=== PATIENT | female | born 1945 | race American Indian/Alaskan Native ===

== ENCOUNTER 2016-09-27 14:47 | Emergency (ER) | payer MEDICARE ==
[2016-09-27 16:06] LABS: Basophils % (Auto) 0.1 % (0.0-1.8); Hematocrit 32.6 % (30.3-42.9); Hemoglobin 10.8 gm/dl (10.1-14.3); Mean Corpuscular HGB Conc 33 % (30-34); Mean Corpuscular Hemoglobin 30 pg (28-32); Mean Corpuscular Volume 89 fl (79-97); Platelet Count 278 K/mm3 (140-440); Red Blood Count 3.67 M/mm3 (3.65-5.03); Red Cell Distribution Width 15.6 % (13.2-15.2); White Blood Count 14.7 K/mm3 (4.5-11.0)
[2016-09-27 16:12] LABS: Anion Gap 23 mmol/L; BUN/Creatinine Ratio 33.33; Blood Urea Nitrogen 30 mg/dL (7-17); Calcium 8.8 mg/dL (8.4-10.2); Carbon Dioxide 24 mmol/L (22-30); Chloride 100.3 mmol/L (98-107); Glucose 104 mg/dL (65-100); Potassium 3.8 mmol/L (3.6-5.0); Sodium 143 mmol/L (137-145)
--- NOTE | 2016-09-27 18:20 | Emergency Department Report ---
ED Abdominal Pain HPI - General Chief Complaint: Abdominal Pain Stated Complaint: GENERAL WEAKNESS Time Seen by Provider: 09/27/16 17:35 Source: EMS Mode of arrival: Stretcher Limitations: No Limitations, Physical Limitation - History of Present Illness MD Complaint: abdominal pain -: Gradual Location: diffuse Radiation: none Severity: moderate Severity scale (0 -10): 7 Quality: cramping, aching Consistency: intermittent Improves With: nothing Worsens With: nothing Associated Symptoms: nausea, vomiting. denies: diarrhea, fever, chills, constipation, dysuria, hematemesis, hematochezia, melena, hematuria, anorexia, syncope - Related Data Allergies Allergy/AdvReac Type Severity Reaction Status Date / Time Penicillins Allergy Unknown Verified 09/27/16 15:29 ED Review of Systems ROS: Stated complaint: GENERAL WEAKNESS Other details as noted in HPI Comment: All other systems reviewed and negative ED Past Medical Hx - Past Medical History Previous Medical History?: Yes Hx Heart Attack/AMI: Yes Hx Diabetes: Yes Hx of Cancer: Yes (HX of pancreatic cancer. No active tx.) - Surgical History Past Surgical History?: Yes Hx Appendectomy: Yes Additional Surgical History: Hx of hysterectomy. - Social History Smoking Status: Never Smoker Substance Use Type: None ED Physical Exam - General Limitations: No Limitations, Physical Limitation General appearance: alert, in no apparent distress - Head Head exam: Present: atraumatic, normocephalic - Eye Eye exam: Present: normal appearance - ENT ENT exam: Present: normal exam, normal orophraynx, mucous membranes moist - Neck Neck exam: Present: normal inspection - Respiratory Respiratory exam: Present: normal lung sounds bilaterally. Absent: respiratory distress, wheezes, rales - Cardiovascular Cardiovascular Exam: Present: regular rate, normal rhythm. Absent: systolic murmur, diastolic murmur, rubs, gallop - GI/Abdominal GI/Abdominal exam: Present: soft, tenderness, normal bowel sounds. Absent: distended, guarding, rebound, rigid, hyperactive bowel sounds, hypoactive bowel sounds - Extremities Exam Extremities exam: Present: normal inspection - Back Exam Back exam: Present: normal inspection - Neurological Exam Neurological exam: Present: alert, oriented X3 - Psychiatric Psychiatric exam: Present: normal affect, normal mood - Skin Skin exam: Present: warm, dry, intact, normal color. Absent: rash ED Course Vital Signs 0809/27/16 09/27/16 15:12 15:15 15:16 Temperature 98.1 F Pulse Rate 91 H Respiratory 16 Rate Blood Pressure 140/71 140/71 Blood Pressure 140/71 [Left] O2 Sat by Pulse 97 96 100 Oximetry 09/27/16 09/27/16 09/27/16 15:30 16:01 16:19 Temperature Pulse Rate Respiratory 18 Rate Blood Pressure 129/57 139/61 Blood Pressure [Left] O2 Sat by Pulse 96 96 Oximetry 09/27/16 09/27/16 09/27/16 16:32 17:00 18:00 Temperature 98.2 F 98.2 F Pulse Rate 81 92 H Respiratory 18 24 Rate Blood Pressure 131/63 Blood Pressure 135/67 140/68 [Left] O2 Sat by Pulse 96 98 92 Oximetry 09/27/16 18:11 Temperature Pulse Rate Respiratory Rate Blood Pressure 164/88 Blood Pressure [Left] O2 Sat by Pulse 100 Oximetry ED Medical Decision Making - Lab Data Result diagrams: 09/27/16 15:41 09/27/16 15:41 Critical care attestation.: If time is entered above; I have spent that time in minutes in the direct care of this critically ill patient, excluding procedure time. ED Disposition Clinical Impression: Abdominal pain Disposition: DC-07 LEFT AGAINST MED ADVICE Is pt being admited?: No Does the pt Need Aspirin: No Condition: Fair Referrals: ANNY LAZARO MD [Primary Care Provider] - 3-5 Days
[2016-09-27 18:34] VITALS: BP 140/68
[2016-09-27 18:36] LABS: Alanine Aminotransferase 11 units/L (7-56); Albumin 4.1 g/dL (3.9-5); Albumin/Globulin Ratio 1.3 %; Alkaline Phosphatase 73 units/L (35-129); Bilirubin,Direct < 0.2 mg/dL (0-0.2); Bilirubin,Indirect 0.4 mg/dL; Lipase 30 units/L (13-60); Total Protein 7.3 g/dL (6.3-8.2)
[2016-09-27] MEDS ORDERED: TORADOL IV ONE (18:41)
[2016-09-27] MEDS ORDERED: NACL 0.9% 1000 ML 1,000 ML IV ONE (18:41)
[2016-09-27 19:20] LABS: Bilirubin,Urine NEG (Negative); Blood,Urine NEG (Negative); Ketones,Urine NEG (Negative); Leukocyte Esterase,Urine NEG (Negative); Mucus,Urine FEW /HPF; Nitrite,Urine NEG (Negative); Protein,Urine <15 mg/dL mg/dL (Negative); Urobilinogen,Urine < 2.0 mg/dL (<2.0)
== END 2016-09-27 19:40 | disposition left against medical advice (07) ==
LOC: ED 14:47
DX: R10.84 Generalized abdominal pain (principal); R11.2 Nausea with vomiting, unspecified; I25.2 Old myocardial infarction; E11.9 Type 2 diabetes mellitus without complications; Z88.0 Allergy status to penicillin
CPT/HCPCS: 36415; 80048; 80074; 81001; 83690; 84484; 85025; 93005; 93010; 99284

== ENCOUNTER 2017-03-23 12:26 | Emergency (ER) | payer MEDICARE ==
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
[2017-03-23 13:39] LABS: Basophils % (Auto) 0.3 % (0.0-1.8); Eosinophils % (Auto) 0.4 % (0.0-4.3); Hemoglobin 11.5 gm/dl (10.1-14.3); Lymphocytes # (Auto) 1.7 K/mm3 (1.2-5.4); Lymphocytes % (Auto) 22.5 % (13.4-35.0); Mean Corpuscular HGB Conc 34 % (30-34); Mean Corpuscular Hemoglobin 31 pg (28-32); Mean Corpuscular Volume 90 fl (79-97); Monocytes # (Auto) 0.5 K/mm3 (0.0-0.8); Platelet Count 245 K/mm3 (140-440); Red Blood Count 3.78 M/mm3 (3.65-5.03); Red Cell Distribution Width 17.9 % (13.2-15.2)
[2017-03-23 13:50] LABS: BUN/Creatinine Ratio 28; Blood Urea Nitrogen 14 mg/dL (7-17); Calcium 7.7 mg/dL (8.4-10.2); Hemolysis Index 27
[2017-03-23 15:28] VITALS: BP 118/78
== END 2017-03-23 20:46 | disposition home or self-care (01) ==
LOC: ED 12:26
DX: F20.9 Schizophrenia, unspecified (principal); I25.2 Old myocardial infarction; E11.9 Type 2 diabetes mellitus without complications; F03.90 Unspecified dementia, unspecified severity, without behavioral disturbance, psychotic disturbance, mood disturbance, and anxiety; Z88.0 Allergy status to penicillin
CPT/HCPCS: 36415; 80048; 80164; 85025; 99284; G0480; 80320

== ENCOUNTER 2017-03-24 13:25 | Emergency (ER) | payer MEDICARE ==
--- NOTE | 2017-03-24 14:56 | Emergency Department Report ---
ED General Adult HPI - General Chief complaint: Medical Clearance Stated complaint: CONTRIBUTION SOLICITOR Time Seen by Provider: 03/24/17 13:47 Source: patient, RN notes reviewed Mode of arrival: Stretcher Limitations: Other - History of Present Illness Initial comments: Patient presented to our emergency department yesterday for a psych eval after being sent by [facility] in [place], [place]. Patient was thoroughly worked up in our emergency department and a psych eval was done and found that the patient was not a harm to self or others so at that point she was discharged. Patient was transported back to the [facility] in [place], [place] today via EMS and upon their arrival they declined the patient. Patient was initially seen yesterday for aggression and agitation. The patient is very pleasant on exam here and has no complaints and denies being depressed suicidal or homicidal. - Related Data Previous Rx's Medication Instructions Recorded Last Taken Type ALBUTEROL Inhaler [ProAir HFA 2 puff IH QID PRN #1 inhalation 02/21/17 Unknown Rx Inhaler] Divalproex Sprinkle [Depakote 250 mg PO BID #60 capsule 02/21/17 Unknown Rx Sprinkle] OLANzapine ZYDIS [ZyPREXA Zydis] 5 mg PO BID #60 tab.rapdis 02/21/17 Unknown Rx Allergies Allergy/AdvReac Type Severity Reaction Status Date / Time Penicillins Allergy Unknown Verified 09/27/16 15:29 ED Review of Systems ROS: Stated complaint: CONTRIBUTION SOLICITOR Other details as noted in HPI Constitutional: denies: chills, fever Eyes: denies: eye pain, eye discharge, vision change ENT: denies: ear pain, throat pain Respiratory: denies: cough, shortness of breath, wheezing Cardiovascular: denies: chest pain, palpitations Endocrine: no symptoms reported Gastrointestinal: denies: abdominal pain, nausea, diarrhea Genitourinary: denies: urgency, dysuria, discharge Musculoskeletal: denies: back pain, joint swelling, arthralgia Skin: denies: rash, lesions Neurological: denies: headache, weakness, paresthesias Psychiatric: denies: anxiety, depression Hematological/Lymphatic: denies: easy bleeding, easy bruising ED Past Medical Hx - Past Medical History Previous Medical History?: Yes Hx Heart Attack/AMI: Yes Hx Diabetes: Yes Hx Psychiatric Treatment: Yes (schizophrenia) Hx Dementia: Yes Additional medical history: pancreatic cancer and dementia - Surgical History Hx Appendectomy: Yes Additional Surgical History: Hx of hysterectomy. - Social History Smoking Status: Never Smoker Substance Use Type: None - Medications Home Medications: Home Medications Medication Instructions Recorded Confirmed Last Taken Type ALBUTEROL Inhaler [ProAir HFA 2 puff IH QID PRN #1 inhalation 02/21/17 03/24/17 Unknown Rx Inhaler] Divalproex Sprinkle [Depakote 250 mg PO BID #60 capsule 02/21/17 03/24/17 Unknown Rx Sprinkle] OLANzapine ZYDIS [ZyPREXA Zydis] 5 mg PO BID #60 tab.rapdis 02/21/17 03/24/17 Unknown Rx ED Physical Exam - General Limitations: Other General appearance: alert, in no apparent distress - Head Head exam: Present: atraumatic, normocephalic - Eye Eye exam: Present: normal appearance - ENT ENT exam: Present: mucous membranes moist - Neck Neck exam: Present: normal inspection - Respiratory Respiratory exam: Present: normal lung sounds bilaterally. Absent: respiratory distress - Cardiovascular Cardiovascular Exam: Present: regular rate, normal rhythm. Absent: systolic murmur, diastolic murmur, rubs, gallop - GI/Abdominal GI/Abdominal exam: Present: soft, normal bowel sounds - Extremities Exam Extremities exam: Present: normal inspection - Back Exam Back exam: Present: normal inspection - Neurological Exam Neurological exam: Present: alert, oriented X3 - Psychiatric Psychiatric exam: Present: normal affect, normal mood - Skin Skin exam: Present: warm, dry, intact, normal color. Absent: rash ED Course Vital Signs 03/24/17 15:13 Temperature 98.7 F Pulse Rate 67 Respiratory 17 Rate Blood Pressure 123/51 [Right] O2 Sat by Pulse 98 Oximetry Critical care attestation.: If time is entered above; I have spent that time in minutes in the direct care of this critically ill patient, excluding procedure time. ED Disposition Condition: Stable Referrals: PRIMARY CARE, [Primary Care Provider] - 3-5 Days
[2017-03-27] MEDS ORDERED: PEPCID PO ONE (15:51)
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
[2017-03-28 07:56] LABS: Basophils % (Auto) 0.3 % (0.0-1.8); Eosinophils % (Auto) 0.3 % (0.0-4.3); Hematocrit 34.4 % (30.3-42.9); Hemoglobin 11.6 gm/dl (10.1-14.3); Lymphocytes # (Auto) 1.9 K/mm3 (1.2-5.4); Lymphocytes % (Auto) 25.5 % (13.4-35.0); Mean Corpuscular HGB Conc 34 % (30-34); Mean Corpuscular Hemoglobin 31 pg (28-32); Mean Corpuscular Volume 91 fl (79-97); Monocytes # (Auto) 0.5 K/mm3 (0.0-0.8); Monocytes % (Auto) 6.2 % (0.0-7.3); Platelet Count 176 K/mm3 (140-440); Red Blood Count 3.79 M/mm3 (3.65-5.03); Red Cell Distribution Width 17.1 % (13.2-15.2)
[2017-03-28 08:22] LABS: BUN/Creatinine Ratio 28; Blood Urea Nitrogen 14 mg/dL (7-17); Calcium 7.4 mg/dL (8.4-10.2); Hemolysis Index 71
--- NOTE | 2017-03-29 10:31 | Progress Note ---
Subjective - Reason for Consult Consult date: 03/29/17 Reason for consult: Psychiatry Follow-up - Chief Complaint Chief complaint: "Brit" Patient presented to our emergency department yesterday for a psych eval after being sent by [facility] in [place], [place]. This patient is known to me. Today the patient is calm and cooperative during the assessment. She stated that she wants to move back to an apt complex name [facility]. She stated that she gave that information to Technology Support Analyst. She stated that she need to get out of the bed and move around. She denies SI/HI's and AVH's. Per the staff, the patient is completed her ADL's with assistance. No behavioral disturbance overnight. Mental Status Exam - Vital signs Last Vital Signs Temp 98.1 F 03/29/17 06:13 Pulse 68 03/29/17 08:22 Resp 18 03/29/17 08:22 BP 136/41 03/29/17 08:01 Pulse Ox 97 03/29/17 08:22 - Exam Narrative exam: MSE: Appearance: calm Behavior: regular eye contact Speech: regular rate and tone Mood: "okay" Affect: congruent to mood Thought Process: circumstantial Thought Content: denies SI/HI's and AVH's Motor Activity: lying in bed Cognition: A/O x3 Insight: fair Judgment: fair Assessment and Plan Impression: Hx of Schizophrenia. Today the patient is calm during the assessment. VA 11.6 on admission 03/23/2017. Recommendation/Plan: Unsuccessful gathering collateral information from the patient's last snf. The patient is pending placement, per Technology Support Analyst. Recommend PT for the patient.
[2017-03-29 13:22] VITALS: BP 121/61
[2017-03-30] MEDS ORDERED: PEPCID PO ONE (07:16)
--- NOTE | 2017-03-30 11:49 | Progress Note ---
Subjective - Reason for Consult Consult date: 03/30/17 Reason for consult: Psychiatry Follow-up - Chief Complaint Chief complaint: "I am leaving today" Patient presented to our emergency department yesterday for a psych eval after being sent by [facility] in [place], [place]. This patient is known to me. Today the patient is calm and cooperative during the assessment. She stated that she will be discharged today. Per the staff, no behavioral disturbance overnight. She denies SI/HI's and AVH's. Mental Status Exam - Vital signs Last Vital Signs Temp 98.6 F 03/30/17 02:53 Pulse 79 03/29/17 13:21 Resp 17 03/29/17 13:21 BP 121/61 03/29/17 13:21 Pulse Ox 98 03/29/17 13:21 - Exam Narrative exam: MSE: Appearance: calm Behavior: regular eye contact Speech: regular rate and tone Mood: "okay" Affect: congruent to mood Thought Process: circumstantial Thought Content: denies SI/HI's and AVH's Motor Activity: lying in bed Cognition: A/O x3 Insight: fair Judgment: fair Assessment and Plan Impression: Hx of Schizophrenia. Today the patient is calm during the assessment. Recommendation/Plan: The patient is pending discharge today. Patient will need a prescription for Zyprexa 5 mg PO HS for schizophrenia. The patient was given outpatient psy services for [facility].
== END 2017-03-30 12:29 | disposition home or self-care (01) ==
LOC: ED 13:25
DX: R45.1 Restlessness and agitation (principal); I25.2 Old myocardial infarction; F41.9 Anxiety disorder, unspecified; F20.9 Schizophrenia, unspecified; C25.9 Malignant neoplasm of pancreas, unspecified; Z88.0 Allergy status to penicillin
CPT/HCPCS: 36415; 80048; 85025; 99284